=== PATIENT | female | born 1990 | race African-American/Black ===

== ENCOUNTER 2018-07-16 16:48 | Emergency (ER) | payer OTHER ==
[2018-07-16 17:07] VITALS: BP 123/67; PULSE 83; TEMP 98.5; BMI 27.3
--- NOTE | 2018-07-16 17:33 | PDOC ---
History of Present Illness - General Chief Complaint: Pain, Acute Stated Complaint: SHOULDER PAIN Time Seen by Provider: 07/16/18 17:26 - History of Present Illness Initial Comments: 07/16/18 17:30 45-year-old female without comorbidities presents for evaluation of left shoulder pain times one day. She states she did some laundry and lifted her Last week which may have caused her shoulder pain there was no traumatic event. Past History - Past Medical History Allergies/Adverse Reactions: Allergies Allergy/AdvReac Type Severity Reaction Status Date / Time No Known Allergies Allergy Verified 07/16/18 17:24 Home Medications: Ambulatory Orders Ibuprofen [Motrin -] 600 mg PO TID #30 tablet 07/16/18 COPD: No - Immunization History Immunization Up to Date: Yes - Suicide/Smoking/Psychosocial Hx Smoking History: Never smoked Hx Alcohol Use: No Drug/Substance Use Hx: No Review of Systems - Review of Systems Musculoskeletal: Yes: Joint Pain *Physical Exam - Vital Signs Last Vital Signs Temp Pulse Resp BP Pulse Ox 98.5 F 83 16 123/67 99 07/16/18 17:05 07/16/18 17:05 07/16/18 17:05 07/16/18 17:05 07/16/18 17:05 - Physical Exam Comments: 07/16/18 17:31 Left shoulder skin color and temperature are normal range of motion is full and without discomfort. 5 out of 5 strength with super spinatus isolation internal and external rotation mildly positive impingement maneuvers negative Spurling maneuver. She is neurovascularly intact free of any gross sensorimotor deficits. Medical Decision Making - Medical Decision Making 07/16/18 17:31 Motrin. Patient assures me she's not discussed use of Motrin and anti- inflammatories as well as Tylenol. Follow-up with orthopedic for left shoulder impingement syndrome *DC/Admit/Observation/Transfer Diagnosis at time of Disposition: Shoulder impingement - Discharge Dispostion Disposition: HOME Condition at time of disposition: Stable Decision to Admit order: No - Prescriptions Prescriptions: Ibuprofen [Motrin -] 600 mg PO TID #30 tablet - Referrals Referrals: Phill Meredith DO [Staff Physician] - - Patient Instructions Printed Discharge Instructions: Shoulder Tendinopathy Additional Instructions: Please follow-up with orthopedic surgery in 1-2 days for further evaluation and treatment options. Return to the emergency room for worsening symptoms. Please take the Motrin one tablet 3 times a day with meals as directed and discontinue the medication if it bothers her stomach. He may also take Tylenol as directed for supplemental pain medication. - Post Discharge Activity
== END 2018-07-16 17:38 | disposition home or self-care (01) ==
LOC: JERFT 16:48
DX: M75.42 Impingement syndrome of left shoulder (principal)
CPT/HCPCS: 99281-25